=== PATIENT | female | born 1990 | race Hispanic/Latino ===

== ENCOUNTER 2019-06-13 05:58 | Inpatient (IN) ==
[2019-06-13] MEDS ORDERED: LIDOCAINE HCL 50 ML VIAL PERI PRN (06:04)
[2019-06-13] MEDS ORDERED: ONDANSETRON 4 MG TAB.RAPDIS PO PRN (06:04)
[2019-06-13] MEDS ORDERED: RINGER'S SOLUTION,LACTATED 1,000 ML IV ONE (06:04)
[2019-06-13] MEDS ORDERED: DEXTROSE 5%-LACTATED RINGERS 1,000 ML IV PRN (06:04)
[2019-06-13] MEDS ORDERED: OXYTOCIN/DEXTROSE 5%-WATER 30 UNITS/500 ML BAG IV ONE ×2 (06:04→15:01)
[2019-06-13 07:09] LABS: Cocaine Ur Negative (NEGATIVE); Urine Barbiturate Negative (NEGATIVE); Urine Benzodiazepines Negative (NEGATIVE); Urine Opiates Negative (NEGATIVE); Urine PCP Negative (NEGATIVE); Urine THC Negative (NEGATIVE)
--- NOTE | 2019-06-13 08:59 | HP ---
Chief Complaint - Chief Complaint Date of Service: 06/13/19 Time of Service: 08:46 Chief Complaint: elective induction of labor History of Present Illness: 28 yo at 39 2/7 weeks presents for elective induction of labor. This uncomplicated Rh positive Rubella immune GBS negative Medical History (Last Reviewed 06/13/19 @ 08:50 by Crow Christopher DO) Irregular menses (Acute) Refused influenza vaccine (Acute) Body piercing Onset Date: Unknown Tattoos Onset Date: Unknown Wears glasses Onset Date: Unknown Anemia Onset Date: ~2010 2006,2010, 2019-w/pregnancies Atopic dermatitis Onset Date: Unknown allergic Conjunctivitis Onset Date: Unknown Excessive and frequent menstruation Onset Date: ~2014 Intrauterine device (IUD) migration Onset Date: Unknown Otitis media Onset Date: ~2003 Ovarian cyst Onset Date: Unknown Surgical History: Surgical History (Last Reviewed 06/13/19 @ 08:50 by Crow Christopher DO) History of hysteroscopy Onset Date: ~2010 hysteroscopic removal of IUD Family History: Family History (Last Reviewed 06/13/19 @ 08:50 by Crow Christopher DO) Mother Cancer colon Multiple sclerosis Father Lactose intolerance Brother Cancer testicular Grandmother , maternal Osteoporosis Grandmother , paternal Diabetes Grandfather , maternal Cancer lung Grandfather , paternal Diabetes Social History: (Last Reviewed 06/13/19 @ 08:50 by Crow Christopher DO) Social History: adopted: No fdc: No Marital status: household members: children, significant other number of children: 2 current occupational status: employed 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 current occupational exposures/hazards: No Highest education level completed: some college, no degree Sexually Active: Yes Service: No Tobacco: Smoking Status: Former smoker Alcohol: alcohol intake: current alcohol intake frequency: a few times a week details: No alcohol since + UPT Substance Use: substance use type: does not use Dietary Habits: caffeine: Yes Type: carbonated beverages, coffee Exercise: frequency: 3-4 times per week Joyce/Mosque: agree to transfusion: Yes Review Of Systems (GEN) - Review of Systems Generalized/Overall Review: Present: No Symptoms Reported EENTM: Present: No Symptoms Reported Respiratory: Present: No Symptoms Reported Cardiac: Present: No Symptoms Reported Abdominal: Present: No Symptoms Reported Genitourinary: Present: No Symptoms Reported Musculoskeletal: Present: No Symptoms Reported Neurological: Present: No Symptoms Reported Skin: Present: No Symptoms Reported Endocrine: Present: No Symptoms Reported Immunizations: IMMUNIZATION HX Immunizations Up to Date Yes History of Influenza Vaccine Yes Hx Pneumococcal Vaccination No Allergies/Adverse Reactions: Allergies Allergy/AdvReac Type Severity Reaction Status Date / Time Penicillins Allergy Severe rash Verified 06/11/19 15:48 erythromycin base AdvReac Severe nausea/vomi Verified 06/11/19 15:48 ting poison giovanni extract AdvReac Severe severe rash Verified 06/11/19 15:48 Home Medications: HOME MEDICATIONS prenat.vits,el,jjj-[id number] 1 tab PO DAILY 11/05/18 [Last Taken Unknown] ferrous sulfate 325 mg (65 mg iron) tablet,delayed release 325 mg PO BID #30 tab 03/21/19 [Last Taken Unknown] Exam - Exam Constitutional: Present: Alert, Oriented x3, Cooperative, No distress ENT Exam: Present: hearing grossly normal Neck: Absent: thyromegaly Breasts: Present: Exam deferred Respiratory: Present: lungs clear, no respiratory distress Cardiovascular/Chest: Present: regular rate, rhythm, no edema Abdomen: Present: Normal bowel sounds, soft, nontender, other - gravid /Rectal: Present: Other - 5/50/-2 Extremity: Present: no pedal edema, no calf tenderness Skin Exam: Present: normal color, warm/dry, no cyanosis Lymphatic: Present: no adenopathy Neurologic: Present: alert, normal mood/affect, oriented x 3 Appearance: Present: appropriate appearance Eye contact: Present: cooperative Thoughts: Present: normal mood /affect Diagnostic Studies: Laboratory Results Urine Opiates Screen Negative (NEGATIVE) 06/13/19 06:44 Barbiturate Screen Negative (NEGATIVE) 06/13/19 06:44 Ur Phencyclidine Scrn Negative (NEGATIVE) 06/13/19 06:44 Urine Amphetamine Negative (NEGATIVE) 06/13/19 06:44 U Benzodiazepines Scrn Negative (NEGATIVE) 06/13/19 06:44 Urine Cocaine Screen Negative (NEGATIVE) 06/13/19 06:44 Urine Marijuana (THC) Negative (NEGATIVE) 06/13/19 06:44 Assessment/Plan - Assessment/Plan (1) Encounter for elective induction of labor Assessment: Admit for pitocin induction of labor. Epidural PRN. Problem: Acute Non Stress Test - Status NST: 06/13/19 Reason for NST: other - induction of labor Monitor Mode: External Acceleration: Present Decelerations: None Variability: Moderate 6-25 bpm Activity: reactive - Assessment NST Assessment: other - arrythmia noted on monitor - Plan NST Plan: Admit to L&D
--- NOTE | 2019-06-13 09:01 | PN ---
Progess Note - Interim Date: 06/13/19 Time: 09:00 Narrative: 06/13/19 09:00 Patient rating contractions as mild Vital signs stable. Pitocin at 3 mu/min. FHT: 150 baseline, reassuring contractions q 2-3 min Cervix: 5/70 5/-2, AROM-clear Impression: Intrauterine at 39-2/7 weeks elective induction of labor Plan: Continue present plan
[2019-06-13] MEDS: RINGER'S SOLUTION,LACTATED 1,000 ML IV PRN ×2 (13:06→16:40)
[2019-06-13] MEDS ORDERED: ONDANSETRON HCL/PF 2 MG/ML VIAL IV PRN (13:23)
[2019-06-13] MEDS ORDERED: NALOXONE HCL 1 MG/1 ML SYRG IV PRN (13:23)
[2019-06-13] MEDS ORDERED: BUPIVACAINE HCL/0.9 % NACL/PF 250 ML EP PRN (13:23)
[2019-06-13] MEDS ORDERED: fentaNYL CITRATE/PF 50 MCG/ML AMPUL IT SCH (13:30)
[2019-06-13] MEDS ORDERED: BUPIVACAINE HCL 50 ML VIAL IJ ONE (14:00)
--- NOTE | 2019-06-13 14:12 | ANES ---
Anesthesia Pre Procedure Eval HOME MEDICATIONS prenat.vits,el,zxi-djec-[id number] 1 tab PO DAILY 11/05/18 [Last Taken Unknown] ferrous sulfate 325 mg (65 mg iron) tablet,delayed release 325 mg PO BID #30 tab 03/21/19 [Last Taken Unknown] Allergies/Adverse Reactions: Allergies Allergy/AdvReac Type Severity Reaction Status Date / Time Penicillins Allergy Severe rash Verified 06/11/19 15:48 erythromycin base AdvReac Severe nausea/vomi Verified 06/11/19 15:48 ting poison giovanni extract AdvReac Severe severe rash Verified 06/11/19 15:48 - Planned Procedure Planned Procedure: elective induction Medication List Reviewed:: Yes Allergies Verified: Yes Medical History (Last Reviewed 06/13/19 @ 14:12 by Nura Uribe CRNA) Irregular menses (Acute) Refused influenza vaccine (Acute) Body piercing Onset Date: Unknown Tattoos Onset Date: Unknown Wears glasses Onset Date: Unknown Anemia Onset Date: ~2010 2006,2010, 2019-w/pregnancies Atopic dermatitis Onset Date: Unknown allergic Conjunctivitis Onset Date: Unknown Excessive and frequent menstruation Onset Date: ~2014 Intrauterine device (IUD) migration Onset Date: Unknown Otitis media Onset Date: ~2003 Ovarian cyst Onset Date: Unknown Surgical History (Last Reviewed 06/13/19 @ 14:12 by Nura Uribe CRNA) History of hysteroscopy Onset Date: ~2010 hysteroscopic removal of IUD Family History (Last Reviewed 06/13/19 @ 14:12 by Nura Uribe CRNA) Mother Cancer colon Multiple sclerosis Father Lactose intolerance Brother Cancer testicular Grandmother , maternal Osteoporosis Grandmother , paternal Diabetes Grandfather , maternal Cancer lung Grandfather , paternal Diabetes - Family Anesthesia History Family History:: no untoward family reactions to anesthesia - Airway/Neck/Teeth Within Normal Limits:: Yes Teeth Condition: intact Neck Exam: full range of motion Mallampatti Score: 2 Thyromental (T-M) distance: > 6 cm Mandibulo Hyoid distance: > 3 cm - Respiratory Respiratory Physical: lungs clear Smoking Status: Former smoker Sleep Apnea currently treated: No Sleep Apnea by current assessment: No - Cardiovascular Tolerate Activity: Good Heart Sounds: S1 & S2, Regular - Gastrointestinal NPO since: 0800 - Anesthesia Assessment and Plan ASA Class: PS, II, E Anesthesia Type Plan: Spinal Planned difficult intubation/equipment available: No
--- NOTE | 2019-06-13 14:13 | ANES ---
Post Anesthesia Discharge - Transfer of Care Transfer of Care handoff given to nurse: Yes - Anesthesia Post Op Note Anesthesia Post Op Note: Care transferred to OB RN
--- NOTE | 2019-06-13 14:13 | ANES ---
Post Anesthesia Assessment - Vital Signs Airway Patency: Normal - Mental Status Level Of Consciousness: Awake - Pain Level Pain Score: 0 - N/V Assessment Nausea/Vomiting Presence: None Dehydration:: No
--- NOTE | 2019-06-13 14:18 | ANES ---
Anesthesia Procedure Note Procedure Note: ANESTHESIA PROCEDURE NOTE Date of procedure: 06/13/2019. Time of procedure: 1350. Performed by: Finesse Uribe CRNA Assistant Program Manager: None . Preprocedure diagnosis: Active labor. Post procedure diagnosis: Same. Procedure: Labor intrathecal Indications: Labor analgesia. Findings: Patient was placed in a sitting position. Her back was prepped with DuraPrep. Her back was draped sterilely. 5 mL of 1% Xylocaine was injected into the skin and subcutaneous tissue at the L3-4 innerspace. Dura was p unctured with a 25-gauge Pencan spinal needle. 2.5 mg of 0.5% preservative-free Marcaine and 25 mcg of fentanyl was given intrathecally. Spinal needle was removed intact. EBL: Minimal. Fluids: N/A. Specimen: N/A. Post procedure condition: The patient tolerated the procedure well. No complications were noted. Thank you for this consultation Finesse Uribe CRNA
[2019-06-13] MEDS ORDERED: HYDROCORTISONE 30 APPL TUBE TP PRN (15:01)
[2019-06-13] MEDS ORDERED: GLYCERIN/WITCH HAZEL LEAF 40 APPL BOX TP PRN (15:01)
[2019-06-13] MEDS ORDERED: oxyCODONE HCL/ACETAMINOPHEN 1 TAB TABLET PO PRN (15:01)
[2019-06-13] MEDS ORDERED: SENNOSIDES 8.6 MG TABLET PO PRN (15:01)
[2019-06-13] MEDS ORDERED: BISACODYL 10 MG SUPP.RECT RC PRN (15:01)
[2019-06-13] MEDS ORDERED: BENZOCAINE/MENTHOL 81 SPRAY CAN TP PRN (15:01)
[2019-06-13] MEDS ORDERED: IBUPROFEN 800 MG TABLET PO PRN ×2 (15:01)
--- NOTE | 2019-06-13 18:04 | OR ---
Operative Report - Dictated Report Narrative: Spontaneous vaginal delivery of viable female at 1436 on 06/13/2019 with Apgars of 8 and 7, weighing 3296 g with tight nuchal cord x1. Cord clamping delayed approximately 30 seconds Placenta delivered complete, intact, with three vessel cord Estimated blood loss: Less than 50 ml Anesthesia: Intrathecal Lacerations: None History for MU History for MU Definition: * The number of deliveries resulting in a live the patient experienced prior to current hospitalization * The previous delivery of live twins or any live multiple gestation is considered one live event. *If primagravida or nulliparous is documented select zero for the number of previous live births. Live Events: Live Events: 2
[2019-06-13] MEDS ORDERED: FERROUS SULFATE 325 MG TABLET PO SCH (21:00)
[2019-06-13] MEDS ORDERED: DOCUSATE SODIUM 100 MG CAPSULE PO SCH (21:00)
[2019-06-14 07:59] VITALS: BP 130/61
[2019-06-14] MEDS ORDERED: PRENATAL VITS96/IRON FUM/FOLIC 1 TAB TABLET PO SCH (09:00)
--- NOTE | 2019-06-14 12:06 | PN ---
Subjective - Date and Time Seen Date: 06/14/19 Time: 09: Objective - Vitals Vitals: Last Vital Signs Temp 36.8 C 06/14/19 07:56 Pulse 85 06/14/19 07:56 Resp 18 06/14/19 07:56 BP 130/61 06/14/19 07:56 Pulse Ox 97 06/14/19 02:16 Patient denies complaints. Lochia wnl abdomen - soft, nontender Uterus -firm, at umbilicus - 1 no calf tenderness Impression: day #1 - s/p spontaneous vaginal delivery. Baby transferred to [facility] for pulmonary hypertension/LVH/respiratory distress. Plan: Continue routine care. Early discharge to be with baby. Follow-up in 3 to 4 weeks for visit. Assessment/Plan - Problems/Diagnosis (1) Encounter for elective induction of labor Problem: Acute
== END 2019-06-14 10:15 | disposition home or self-care (01) | DRG 807 ==
LOC: OB 05:58
PROVIDERS: ADMIT Obstetrics & Gynecology; ATTEND Obstetrics & Gynecology
CPT/HCPCS: 59025; 80307